=== PATIENT | male | born 2000 | race Caucasian/White ===

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

== ENCOUNTER 2022-05-08 12:46 | Emergency (ER) | payer OTHER, SELFPAY ==
[2022-05-08 12:46] VITALS: BP 112/77; PULSE 91; RESP 14; TEMP 36.7; O2SAT 97
--- NOTE | 2022-05-08 13:38 | ED.NEUROSD ---
HPI - Neuro Symptoms/Deficit General Chief Complaint: Neuro Symptoms/Deficit Stated Complaint: aphasia, vision changes x 1 mo Time Seen by Provider: 05/08/22 13:05 History of Present Illness HPI Narrative: Patient is a 21-year-old male who presents ER for evaluation of vision issues. Reports he has been noticing over the last month that in the evenings at nighttime when he is looking at stop lights or other bright lights they cause him to squint and have trouble seeing. He also reports that at times he will see a little black spot in the periphery of his vision and then he will develop some blurred vision and a headache. No previous history of migraines. Has not tried any oral medications. Patient had noticed that it would occasionally worsen when he is drinking alcohol so he is cut back. No recent trauma to the head. Reports he had a seizure 1 year ago after taking some Melissa at a concert. He then suffered aspiration pneumonia and sepsis. He had an MRI and was hospitalized at [facility]. He was on antiepileptics for a couple months but has been off them since then. He has not followed up with neurology. Patient is not experiencing any fevers or chills or sweats. She went to an urgent care and was referred here. He has not seen an eye doctor. Patient reports he is noted to times where he felt like he has had trouble getting his words out. He reports though the night with a friend he stumbled over his words couple times. He also reports when he is speaking to his girlfriend's father felt like he was speaking and not making sense. He reports that his girlfriend's father felt like he was acting normally at that time. Related Data Home Medications Medication Instructions Recorded Confirmed No Home Medications 11/02/20 11/02/20 Allergies Allergy/AdvReac Type Severity Reaction Status Date / Time CHEWABLE IBUPROFEN Allergy Unknown RASH, Uncoded 08/22/15 10:19 TONGUE SWELLING, ITCHING Review of Systems Review of Systems: All systems reviewed & are unremarkable except as noted in HPI and below Constitutional: Constitutional: Denies chills, Denies fatigue and Denies fever(s) Eyes: Eyes: Reports change in vision and Reports photophobia ENT: Denies vertigo and Denies nasal congestion Neurologic: Denies confusion, Denies syncope, Reports headache(s), Denies focal weakness, Denies numbness and Denies weakness PMFSH Past Medical History Medical History (Updated 05/08/22 @ 13:46 by Phi Anaya MD) Seizures 1 time, drug-induced. Surgical History Surgical History No significant past surgical history Family History Family History Other No significant family history Social History Social History (Updated 11/02/20 @ 17:40 by Deidra Grover, [employer]) Smoking status: Current some day smoker Tobacco type: e-cigarettes/vaping Alcohol intake: current Alcohol use details: occasional Substance use: never Exam Narrative: GENERAL: Well-appearing, well-nourished, and in no acute distress. HEAD: Normocephalic, atraumatic. EYES: PERRLA and EOMI. vision 20/20. ENT: Mucous membranes moist. Normal-appearing posterior oropharynx. CHEST: Clear to auscultation. No respiratory distress. HEART: Regular rate and rhythm. Normal peripheral pulses. ABDOMEN: Soft, nontender, nondistended, normal active bowel sounds. EXTREMITIES: Normal range of motion. No edema. SKIN: Warm, dry, no rash. NEURO: No upper or lower extremity drift. Normal finger-nose testing. Normal [id number] testing. Cranial nerves II through XII intact. Alert and oriented x3. Course Course Emergency Course: Patient resting comfortably. Discussed his symptoms. Patient reports he will typically stay up until 4 AM after getting off work at midnight. He will then wake up sometime in the afternoon. En
[2022-05-08 14:00] VITALS: RESP 16
== END 2022-05-08 14:00 | disposition home or self-care (01) ==
PROVIDERS: Emergency Provider Emergency Medicine; PCP Nurse Practitioner Family
DX: G43.909 Migraine, unspecified, not intractable, without status migrainosus (principal); H53.8 Other visual disturbances; F17.290 Nicotine dependence, other tobacco product, uncomplicated
CPT/HCPCS: 99283